=== PATIENT | male | born 1980 | race Caucasian/White ===

== ENCOUNTER 2017-09-15 17:25 | Emergency (ER) | payer OTHER ==
--- NOTE | 2017-09-15 19:45 | PDOC ---
History of Present Illness - General History Source: Patient Exam Limitations: No Limitations - History of Present Illness Initial Comments: 09/15/17 20:42 The patient is a 37 year old male with past medical history of psoriasis and psoriatic arthritis who presents to the ED s/p trip and fall today at 4:00 pm. The patient states he was walking on [facility] in the city when he tripped over a chain link fence and fell onto the sidewalk, subsequently hitting his right arm and the left side of his face. He states the metal glasses he was wearing broke and cut the left side of his face as well. In the ED the patient complains of pain to his shoulder as well as a dull headache. He denies any visual changes, LOC, or any other focal neurological deficits. He denies any recent illness, fevers, or chills. <Venita Greene - Last Filed: 09/15/17 20:42> <Daniela Aceves - Last Filed: 09/18/17 00:57> - General Chief Complaint: Injury Stated Complaint: FELL, LEFT FACE, RIGHT ARM INJURY Time Seen by Provider: 09/15/17 19:28 Past History <Venita Greene - Last Filed: 09/15/17 20:42> <Daniela Aceves - Last Filed: 09/18/17 00:57> - Past Medical History Allergies/Adverse Reactions: Allergies Allergy/AdvReac Type Severity Reaction Status Date / Time No Known Allergies Allergy Verified 09/15/17 17:27 Home Medications: Ambulatory Orders NK [No Known Home Medication] 09/15/17 Review of Systems - Review of Systems Able to Perform ROS?: Yes Comments:: 09/15/17 20:42 GENERAL/CONSTITUTIONAL: No fever or chills. No weakness. HEAD, EYES, EARS, NOSE AND THROAT: No change in vision. No ear pain or discharge. No sore throat. GASTROINTESTINAL: No nausea, vomiting, diarrhea or constipation. GENITOURINARY: No dysuria, frequency, or change in urination. CARDIOVASCULAR: No chest pain or shortness of breath. RESPIRATORY: No cough, wheezing, or hemoptysis. MUSCULOSKELETAL: Present: right upper extremity pain No neck or back pain. SKIN: Present: cut on left face No rash NEUROLOGIC: Present: headache No vertigo, loss of consciousness, or change in strength/sensation. ENDOCRINE: No increased thirst. No abnormal weight change. HEMATOLOGIC/LYMPHATIC: No anemia, easy bleeding, or history of blood clots. ALLERGIC/IMMUNOLOGIC: No hives or skin allergy. All Other Systems: Reviewed and Negative <Venita Greene - Last Filed: 09/15/17 20:42> *Physical Exam - Vital Signs Last Vital Signs Temp Pulse Resp BP Pulse Ox 98.8 F 85 16 131/87 98 09/15/17 20:15 09/15/17 20:15 09/15/17 20:15 09/15/17 20:15 09/15/17 20:15 - Physical Exam Comments: 09/15/17 20:45 GENERAL: Awake, alert, and fully oriented, in no acute distress HEAD: No signs of trauma EYES: Moderate edema with superior ecchymosis of left periorbital space. Tenderness over the right zygomatic arch and left mandibular angle. No mal occlusion noted. Mild conjunctival erythema of left eye. PERRLA, EOMI, sclera anicteric ENT: Auricles normal inspection, hearing grossly normal, nares patent, oropharynx clear without exudates. Moist mucosa NECK: Normal ROM, supple, no lymphadenopathy, JVD, or masses LUNGS: Breath sounds equal, clear to auscultation bilaterally. No wheezes, and no crackles HEART: Regular rate and rhythm, normal S1 and S2, no murmurs, rubs or gallops ABDOMEN: Soft, nontender, normoactive bowel sounds. No guarding, no rebound. No masses EXTREMITIES: Tenderness with mild edema of right olecranon process, no deformity or ecchymosis. Mild pain of supination of proximal area of right forearm. Mild edema and tenderness of ulnar aspect of the right wrist. No clubbing or cyanosis. No cords. BACK: No midline spinal tenderness in cervical/thoracic/lumbar region NEUROLOGICAL: Normal speech, cranial nerves intact, negative pronator drift, 5/ 5 strength in all 4 extremities, normal sensation to light touch in all 4 extremities, normal cerebellar exam, normal gait, normal reflexes and tone SKIN: Warm, Dry, normal turgor, no rashes or lesions noted. <Venita Greene - Last Filed: 09/15/17 20:42> Progress Note - Progress Note Progress Note: Documentation has been prepared under my direction and personally reviewed by me in its entirety. I attest that this documented accurately reflects all work, treatment, procedures and medical decision making performed by me. <Daniela Aceves - Last Filed: 09/18/17 00:57> Medical Decision Making - Medical Decision Making As noted above, this 37-year-old man tripped over a chain suspended from poles in the [place] area of [facility] a few hours prior to presentation. Patient fell on the left side of his face and right elbow area. There was no loss of consciousness; because he was afraid that ERs in [place] would be crowded, he came to this ER. His only complaints are pain in the left side of his face and right upper extremity. He has been ambulating without difficulty and denies significant headache/neck pain. Exam as noted with the addition of scattered nonbleeding abrasions of the lateral aspect of the left periorbital area. Workup of patient's injuries included right elbow/right forearm x-rays: These were interpreted by Dr. Erickson of the radiology staff . No evidence of fracture or dislocation seen. Facial CT was performed to rule out orbital/zygomatic/mandibular fractures. No evidence of fracture/dislocation seen. Using sterile technique, sterile normal saline used to cleanse left periorbital abrasions. No suturable lacerations present ; abrasions were covered with bacitracin ointment. Patient was discharged with instructions to elevate head tonight; use cool compresses on area of swelling. He can use acetaminophen/ibuprofen/naproxen as needed for pain. Soft diet recommended. He should follow-up with Dr.Ilan chapa if he has persistent right arm pain. <Daniela Aceves - Last Filed: 09/18/17 00:57> *DC/Admit/Observation/Transfer - Attestations Scribe Attestion: 09/15/17 20:55 Documentation prepared by Venita Greene, acting as esthetician and manager medical spa for Daniela Aceves MD. <Venita Greene - Last Filed: 09/15/17 20:42> <Daniela Aceves - Last Filed: 09/18/17 00:57> Diagnosis at time of Disposition: Periorbital ecchymosis Qualifiers: Encounter type: initial encounter Laterality: left Qualified Code(s): S00.12XA - Contusion of left eyelid and periocular area, initial encounter Facial abrasion Qualifiers: Encounter type: initial encounter Qualified Code(s): S00.81XA - Abrasion of other part of head, initial encounter Contusion of right elbow Qualifiers: Encounter type: initial encounter Qualified Code(s): S50.01XA - Contusion of right elbow, initial encounter Strain of forearm, right Qualifiers: Encounter type: initial encounter Qualified Code(s): S56.911A - Strain of unspecified muscles, fascia and tendons at forearm level, right arm, initial encounter Leg abrasion Qualifiers: Encounter type: initial encounter Laterality: unspecified laterality Qualified Code(s): S80.819A - Abrasion, unspecified lower leg, initial encounter - Discharge Dispostion Disposition: HOME Condition at time of disposition: Stable - Referrals Referrals: Vicente Liriano MD [Staff Physician] - 7 days - Patient Instructions Printed Discharge Instructions: DI for Contusion, DI for Abrasion Additional Instructions: Keep head elevated tonight Cool application to the area of swelling in the next few days Bacitracin/Neosporin ointment to abrasions daily Ibuprofen/acetaminophen as needed for pain Follow-up with orthopedics ( group) if right arm pain persists
[2017-09-15 20:26] VITALS: BP 131/87; PULSE 85; TEMP 98.8; BMI 29.0
[2017-09-15] MEDS ORDERED: DIPHTH,PERTUSS(ACELL),TET 0.5 ML DISP.SYRIN IM ONE (21:00)
== END 2017-09-15 23:16 | disposition home or self-care (01) ==
LOC: FER 17:25
PROC: 3E0234Z Introduction of Serum, Toxoid and Vaccine into Muscle, Percutaneous Approach (ICD-10-PCS; principal; 2017-09-15)
DX: S00.12XA Contusion of left eyelid and periocular area, initial encounter (principal); S00.81XA Abrasion of other part of head, initial encounter; S50.01XA Contusion of right elbow, initial encounter; S56.911A Strain of unspecified muscles, fascia and tendons at forearm level, right arm, initial encounter; W18.09XA Striking against other object with subsequent fall, initial encounter; Y93.89 Activity, other specified; Y92.410 Unspecified street and highway as the place of occurrence of the external cause; L40.9 Psoriasis, unspecified
CPT/HCPCS: 70486-TC; 73070-TC-RT-FY; 73090-TC-RT-FY; 90715; 99283-25